=== PATIENT | male | born 1955 | race Caucasian/White ===

== ENCOUNTER → 2020-03-21 | Outpatient (CLI) | payer BC, OTHER | LOC: SJCVCIMAG 13:37 | PROVIDERS: ATTEND Internal Medicine | DX: I35.1 Nonrheumatic aortic (valve) insufficiency (principal); I10 Essential (primary) hypertension ==

== ENCOUNTER → 2021-05-09 | Outpatient (CLI) | payer BC, OTHER ==
--- NOTE | 2021-05-09 07:53 | EKG ---
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: : 1955 Requested By: Surjit Quesada Order Number: [id number] MD: Audi Peters Measurements Intervals [place] Rate: 65 P: 49 NM: 215 QRS: 45 QRSD: 81 T: 16 QT: 381 QTc: 397 Interpretive Statements Sinus rhythm Borderline prolonged NM interval Compared to ECG 05/28/2008 12:19:20 Sinus arrhythmia no longer present Electronically Signed On 05-09-2021 7:52:53 [employer] by Audi Peters [email or web address] <ELECTRONICALLY SIGNED> By: Audi Peters MD, [facility] 05/09/21 [id number] Audi Peters MD, FACC /EPI
== END | disposition home or self-care (01) ==
LOC: CATH 06:23
PROVIDERS: ATTEND Internal Medicine
DX: Z86.79 Personal history of other diseases of the circulatory system (principal); Z53.9 Procedure and treatment not carried out, unspecified reason; E78.5 Hyperlipidemia, unspecified; I10 Essential (primary) hypertension; E11.9 Type 2 diabetes mellitus without complications; G43.909 Migraine, unspecified, not intractable, without status migrainosus; Z98.890 Other specified postprocedural states; Z79.899 Other long term (current) drug therapy; Z79.01 Long term (current) use of anticoagulants